=== PATIENT | female | born 1995 | race Two or more races ===

== ENCOUNTER → 2019-12-18 | Emergency (ER) | payer MEDICAID ==
[~2019-12-18] VITALS: Ht 175.3 cm; Wt 81.4 kg
[~2019-12-18] MED LIST: KETOROLAC TROMETH 60MG/2ML VIAL IM ONE
[2019-12-18 10:26] VITALS: BP 147/90
== END | disposition home or self-care (01) ==
LOC: ER 10:20
DX: G44.209 Tension-type headache, unspecified, not intractable (principal)
CPT/HCPCS: 70450; 96372; 99284; J1885

== ENCOUNTER 2020-04-09 10:32 | Emergency (ER) | payer SELFPAY ==
[~2020-04-09] VITALS: Ht 177.8 cm; Wt 80.7 kg
[2020-04-09 10:48] VITALS: BP 150/82
[2020-04-09 11:39] LABS: Urine Bacteria FEW /hpf (None Seen); Urine Blood TRACE /uL (Negative); Urine Mucus FEW (None Seen); Urine Specific Gravity 1.023 (1.001-1.035); Urine WBC 153 /hpf (0 - 5)
[2020-04-09] MEDS ORDERED: PHENAZOPYRIDINE HCL 100 MG TAB PO ONE (12:00)
[2020-04-09] MEDS ORDERED: cefTRIAXone SOD 1,000 MG VL IM ONE (12:00)
== END 2020-04-09 12:16 | disposition home or self-care (01) ==
LOC: ER 10:32
DX: N39.0 Urinary tract infection, site not specified (principal)
CPT/HCPCS: 81001; 96372; 99283; J0696

== ENCOUNTER 2020-09-19 10:44 | Emergency (ER) | payer MEDICAID ==
[~2020-09-19] VITALS: Ht 172.7 cm; Wt 59.0 kg
[2020-09-19 10:47] VITALS: BP 121/70
[2020-09-19 12:05] LABS: Urine Bacteria FEW /hpf (None Seen); Urine Blood TRACE /uL (Negative); Urine Mucus FEW (None Seen); Urine Specific Gravity 1.033 (1.001-1.035); Urine WBC 164 /hpf (0 - 5)
== END 2020-09-19 12:23 | disposition home or self-care (01) ==
LOC: ER 10:44
DX: O23.41 Unspecified infection of urinary tract in pregnancy, first trimester (principal); Z3A.01 Less than 8 weeks gestation of pregnancy
CPT/HCPCS: 81001; 81025

== ENCOUNTER 2020-10-09 18:32 | Inpatient (IN) | payer MEDICAID ==
[~2020-10-09] VITALS: Ht 167.6 cm; Wt 78.5 kg
[2020-10-09 19:03] LABS: Basophils # (auto) 0 10 ^3/uL (0-0.2); Basophils % (auto) 0.4 % (0.0-2.0); Eosinophils # (auto) 0.1 10 ^3/uL (0-0.8); Hematocrit 38.8 % (36.0-46.0); Hemoglobin 13.1 g/dL (12.2-16.2); Lymphocytes # (auto) 3.1 10 ^3/uL (0.4-5.4); Lymphocytes % (auto) 31.1 % (10.0-50.0); Mean Corpuscular Hemoglobin 27.7 pg (28.0-32.0); Mean Corpuscular Hgb Conc. 33.8 g/dL (32.0-36.0); Monocytes % (auto) 9.7 % (0.0-12.0); Neutrophils # (auto) 5.9 10 ^3/uL (1.6-8.6); Neutrophils % (auto) 57.8 % (37.0-80.0); Nucleated Red Blood Cells % 0.2 %; Platelet Count (auto) 450 10^3/uL (140-450); Red Blood Cells 4.73 10^6/uL (4.0-5.20); Red Cell Distribution Width 13.8 % (11.8-14.3); White Blood Cell 10.1 10^3/uL (4.4-10.8)
[2020-10-09 19:14] LABS: Albumin 4.1 g/dL (3.4-5.0); BUN/Creatinine Ratio 13.2; Calcium 8.9 mg/dL (8.5-10.1); Potassium 3.6 mmol/L (3.5-5.1)
[2020-10-09 19:17] LABS: Bilirubin, Total 0.4 mg/dL (0.2-1.0); Total Protein 7.9 g/dL (6.4-8.2)
[2020-10-09 19:47] LABS: Urine Bacteria MANY /hpf (None Seen); Urine Blood Negative /uL (Negative); Urine Hyaline Cast FEW /lpf (0 - 2); Urine Mucus FEW (None Seen); Urine Specific Gravity 1.031 (1.001-1.035); Urine WBC 176 /hpf (0 - 5)
[2020-10-10] MEDS ORDERED: cefTRIAXone SOD 1,000 MG VL IM ONE (00:30)
[2020-10-10] MEDS ORDERED: ACETAMINOPHEN 325 MG TAB PO ONE ×2 (00:30→00:45)
[2020-10-10] MEDS ORDERED: SODIUM CHLORIDE 0.9% 1,000 ML IV ONE (00:45)
[2020-10-10] MEDS ORDERED: cefTRIAXone 1GM/50ML D5W 50 ML IV ONE ×2 (00:45→02:04)
[2020-10-10] MEDS ORDERED: ACETAMINOPHEN 325 MG TAB PO PRN (02:00)
[2020-10-10 02:16] LABS: Alcohol, Urine < 3.0 mg/dL (0-10); Amphetamine Screen, Urine NEGATIVE (NEGATIVE); Barbiturate Scree,Urine NEGATIVE (NEGATIVE); Benzodiazephine Screen, Urine NEGATIVE (NEGATIVE); Cannabinoid Screen, Urine NEGATIVE (NEGATIVE); Cocaine Screen, Urine NEGATIVE (NEGATIVE); Opiate Scree,Urine NEGATIVE (NEGATIVE); Phencyclidine Screen, Urine NEGATIVE (NEGATIVE)
[2020-10-10] MEDS: SODIUM CHLORIDE 0.9% 1,000 ML IV SCH ×3 (03:00→23:55)
[2020-10-10] MEDS ORDERED: cefTRIAXone 1GM/50ML D5W 50 ML IV SCH (09:00)
[2020-10-10] MEDS ORDERED: PRENATAL VITAMIN TAB PO SCH (10:00)
[2020-10-10 12:59] VITALS: BP 102/69
[2020-10-10 16:39] VITALS: BP 103/53
[2020-10-10 22:31] VITALS: BP 133/57
[2020-10-11 05:11] VITALS: BP 93/46
[2020-10-11 05:48] LABS: Basophils # (auto) 0 10 ^3/uL (0-0.2); Basophils % (auto) 0.4 % (0.0-2.0); Eosinophils # (auto) 0.2 10 ^3/uL (0-0.8); Eosinophils % (auto) 2.2 % (0.0-7.0); Hematocrit 36.1 % (36.0-46.0); Hemoglobin 12.2 g/dL (12.2-16.2); Lymphocytes # (auto) 2.8 10 ^3/uL (0.4-5.4); Lymphocytes % (auto) 38.4 % (10.0-50.0); Mean Corpuscular Hemoglobin 27.9 pg (28.0-32.0); Mean Corpuscular Hgb Conc. 33.7 g/dL (32.0-36.0); Mean Corpuscular Volume 82.7 fL (80.0-100.0); Monocytes # (auto) 0.8 10 ^3/uL (0-1.3); Monocytes % (auto) 10.9 % (0.0-12.0); Neutrophils # (auto) 3.5 10 ^3/uL (1.6-8.6); Neutrophils % (auto) 48.1 % (37.0-80.0); Nucleated Red Blood Cells % 0.1 %; Platelet Count (auto) 379 10^3/uL (140-450); Red Blood Cells 4.36 10^6/uL (4.0-5.20); Red Cell Distribution Width 13.6 % (11.8-14.3); White Blood Cell 7.2 10^3/uL (4.4-10.8)
[2020-10-11 06:18] LABS: Calcium 8.5 mg/dL (8.5-10.1); Potassium 3.4 mmol/L (3.5-5.1)
[2020-10-11 06:22] LABS: BUN/Creatinine Ratio 10.8
[2020-10-11] MEDS ORDERED: cefTRIAXone 1GM/50ML D5W 50 ML IV SCH (07:00)
[2020-10-11] MEDS: SODIUM CHLORIDE 0.9% 1,000 ML IV SCH (08:00)
[2020-10-11 09:00] VITALS: BP 98/51
[2020-10-11] MEDS ORDERED: POTASSIUM CHL 10 Meq TABLET PO ONE (09:15)
== END 2020-10-11 09:30 | disposition home or self-care (01) | DRG 566 ==
LOC: ER 18:33 → OVERFLOW 10-10 01:59 → WEST WING 10-10 08:51
PROVIDERS: ADMIT Nurse Practitioner Acute Care; ATTEND Nurse Practitioner Acute Care
DX: O23.11 Infections of bladder in pregnancy, first trimester (principal); O34.219 Maternal care for unspecified type scar from previous cesarean delivery; B96.20 Unspecified Escherichia coli [E. coli] as the cause of diseases classified elsewhere; E87.6 Hypokalemia; O09.31 Supervision of pregnancy with insufficient antenatal care, first trimester; Z3A.08 8 weeks gestation of pregnancy; O99.281 Endocrine, nutritional and metabolic diseases complicating pregnancy, first trimester; Z83.3 Family history of diabetes mellitus; Z87.440 Personal history of urinary (tract) infections; Z20.822 Contact with and (suspected) exposure to COVID-19
CPT/HCPCS: 36415; 76801; 80048; 80053; 80307; 81001; 84443; 84702; 85025; 87086; 87088; 87186; 87426; 96365; G0378; J0696

== ENCOUNTER 2021-04-05 14:00 | Observation (INO) | payer MEDICAID ==
[2021-04-05] MEDS ORDERED: PREN-96 PO (14:49)
== END 2021-04-05 15:18 | disposition home or self-care (01) ==
LOC: LDRP 14:00
PROVIDERS: ADMIT Obstetrics & Gynecology; ATTEND Obstetrics & Gynecology
DX: O69.81X0 Labor and delivery complicated by cord around neck, without compression, not applicable or unspecified (principal); Z3A.34 34 weeks gestation of pregnancy
CPT/HCPCS: 59025; 81002; 94760; G0378; G0379

== ENCOUNTER 2021-04-07 08:21 | Observation (INO) | payer MEDICAID ==
[~2021-04-07] VITALS: Ht 172 cm; Wt 72.6 kg
[~2021-04-07 08:21] MED LIST changes: -KETOROLAC TROMETH 60MG/2ML VIAL IM ONE; +PREN-96 PO
== END 2021-04-07 16:28 | disposition home or self-care (01) ==
LOC: LDRP 14:55
PROVIDERS: ADMIT Obstetrics & Gynecology; ATTEND Obstetrics & Gynecology
DX: O69.81X0 Labor and delivery complicated by cord around neck, without compression, not applicable or unspecified (principal); Z3A.34 34 weeks gestation of pregnancy; Z98.891 History of uterine scar from previous surgery
CPT/HCPCS: 59025; 81002; 94760; G0378; G0379

== ENCOUNTER 2021-04-11 07:46 | Observation (INO) | payer MEDICAID | END 2021-04-11 11:08 | disposition home or self-care (01) | LOC: LDRP 09:00 | PROVIDERS: ADMIT Obstetrics & Gynecology Obstetrics; ATTEND Obstetrics & Gynecology Obstetrics | DX: O69.81X0 Labor and delivery complicated by cord around neck, without compression, not applicable or unspecified (principal); Z3A.35 35 weeks gestation of pregnancy | CPT/HCPCS: 59025; 76818; 81002; 94760; G0378; G0379 ==

== ENCOUNTER 2021-04-14 09:31 | Observation (INO) | payer MEDICAID | END 2021-04-14 11:34 | disposition home or self-care (01) | LOC: LDRP 09:50 | PROVIDERS: ADMIT Obstetrics & Gynecology; ATTEND Obstetrics & Gynecology | DX: O69.81X0 Labor and delivery complicated by cord around neck, without compression, not applicable or unspecified (principal); Z3A.35 35 weeks gestation of pregnancy | CPT/HCPCS: 59025; 76818; 81002; 94760; G0378 ==

== ENCOUNTER 2021-04-18 07:12 | Observation (INO) | payer MEDICAID | END 2021-04-18 10:25 | disposition home or self-care (01) | LOC: LDRP 08:19 | PROVIDERS: ADMIT Obstetrics & Gynecology Obstetrics; ATTEND Obstetrics & Gynecology Obstetrics | DX: O69.81X0 Labor and delivery complicated by cord around neck, without compression, not applicable or unspecified (principal); O62.9 Abnormality of forces of labor, unspecified; Z3A.36 36 weeks gestation of pregnancy; Z98.891 History of uterine scar from previous surgery | CPT/HCPCS: 59025; 76818; 81002; G0378; G0379 ==

== ENCOUNTER 2021-04-21 09:09 | Observation (INO) | payer MEDICAID | END 2021-04-21 14:17 | disposition home or self-care (01) | LOC: LDRP 09:30 | PROVIDERS: ADMIT Obstetrics & Gynecology; ATTEND Obstetrics & Gynecology | DX: O69.81X0 Labor and delivery complicated by cord around neck, without compression, not applicable or unspecified (principal); Z3A.37 37 weeks gestation of pregnancy | CPT/HCPCS: 59025; 76818; 81002; G0378 ==

== ENCOUNTER 2021-04-22 17:48 | Observation (INO) | payer MEDICAID ==
[2021-04-22 19:44] LABS: Urine Bacteria FEW /hpf (None Seen); Urine Blood Negative /uL (Negative); Urine Specific Gravity 1.027 (1.001-1.035); Urine Sperm PRESENT /hpf (None Seen); Urine WBC 2 /hpf (0 - 5)
== END 2021-04-22 21:39 | disposition home or self-care (01) ==
LOC: LDRP 17:48
PROVIDERS: ADMIT Obstetrics & Gynecology; ATTEND Obstetrics & Gynecology
DX: O26.893 Other specified pregnancy related conditions, third trimester (principal); R10.32 Left lower quadrant pain; R10.2 Pelvic and perineal pain; O69.81X0 Labor and delivery complicated by cord around neck, without compression, not applicable or unspecified; Z3A.36 36 weeks gestation of pregnancy; Z79.899 Other long term (current) drug therapy; W10.9XXA Fall (on) (from) unspecified stairs and steps, initial encounter; Y93.89 Activity, other specified; Y92.89 Other specified places as the place of occurrence of the external cause; Y99.8 Other external cause status
CPT/HCPCS: 59025; 76818; 81001; 81002; 94760; G0378; G0379

== ENCOUNTER 2021-04-25 08:50 | Observation (INO) | payer MEDICAID ==
[~2021-04-25] VITALS: Ht 172 cm; Wt 88.5 kg
== END 2021-04-25 10:30 | disposition home or self-care (01) ==
LOC: LDRP 08:50
PROVIDERS: ADMIT Obstetrics & Gynecology Obstetrics; ATTEND Obstetrics & Gynecology Obstetrics
DX: O69.81X0 Labor and delivery complicated by cord around neck, without compression, not applicable or unspecified (principal); O62.9 Abnormality of forces of labor, unspecified; Z3A.37 37 weeks gestation of pregnancy
CPT/HCPCS: 59025; 76818; 81002; 94760; G0378; G0379

== ENCOUNTER 2021-04-30 10:55 | Observation (INO) | payer MEDICAID | END 2021-04-30 12:45 | disposition home or self-care (01) | LOC: LDRP 10:55 | PROVIDERS: ADMIT Obstetrics & Gynecology Obstetrics; ATTEND Obstetrics & Gynecology Obstetrics | DX: O69.81X0 Labor and delivery complicated by cord around neck, without compression, not applicable or unspecified (principal); Z3A.37 37 weeks gestation of pregnancy | CPT/HCPCS: 59025; 76818; 81002; 94760; G0378; G0379 ==

== ENCOUNTER 2021-05-02 08:17 | Observation (INO) | payer MEDICAID | END 2021-05-02 17:01 | disposition home or self-care (01) | LOC: LDRP 14:45 | PROVIDERS: ADMIT Obstetrics & Gynecology Obstetrics; ATTEND Obstetrics & Gynecology Obstetrics | DX: O69.81X0 Labor and delivery complicated by cord around neck, without compression, not applicable or unspecified (principal); Z3A.38 38 weeks gestation of pregnancy | CPT/HCPCS: 59025; 76818; 81002; G0378 ==

== ENCOUNTER 2021-05-05 11:12 | Observation (INO) | payer MEDICAID ==
[2021-05-07] MEDS ORDERED: DOCU-94 PO (14:25)
[2021-05-07] MEDS ORDERED: IBUP800T27 PO (14:25)
[2021-05-07] MEDS ORDERED: HYDR-4902 PO (14:25)
== END 2021-05-06 12:50 | disposition home or self-care (01) ==
LOC: LDRP 05-06 11:11
PROVIDERS: ADMIT Obstetrics & Gynecology; ATTEND Obstetrics & Gynecology
DX: O69.81X0 Labor and delivery complicated by cord around neck, without compression, not applicable or unspecified (principal); Z20.822 Contact with and (suspected) exposure to COVID-19; Z3A.38 38 weeks gestation of pregnancy; Z98.891 History of uterine scar from previous surgery
CPT/HCPCS: 59025; 76818; 81002; 94760; G0378; G0379; U0003

== ENCOUNTER 2021-05-07 10:40 | Inpatient (IN) | payer MEDICAID ==
[~2021-05-07] VITALS: Ht 170.2 cm; Wt 74.0 kg
[2021-05-07] VITALS (12 sets, daily range): BP systolic 109–130; BP diastolic 50–79
[2021-05-07] MEDS ORDERED: ceFAZolin 1GM/50ML 50 ML IV ONE (12:00)
[2021-05-07 12:25] LABS: Basophils # (auto) 0.1 10 ^3/uL (0-0.2); Basophils % (auto) 0.5 % (0.0-2.0); Eosinophils # (auto) 0.1 10 ^3/uL (0-0.8); Eosinophils % (auto) 0.5 % (0.0-7.0); Hematocrit 32.1 % (36.0-46.0); Hemoglobin 10.2 g/dL (12.2-16.2); Lymphocytes # (auto) 1.9 10 ^3/uL (0.4-5.4); Lymphocytes % (auto) 14.7 % (10.0-50.0); Mean Corpuscular Hemoglobin 23.5 pg (28.0-32.0); Mean Corpuscular Hgb Conc. 31.9 g/dL (32.0-36.0); Mean Corpuscular Volume 73.6 fL (80.0-100.0); Monocytes # (auto) 1.2 10 ^3/uL (0-1.3); Monocytes % (auto) 9.8 % (0.0-12.0); Neutrophils # (auto) 9.5 10 ^3/uL (1.6-8.6); Neutrophils % (auto) 74.5 % (37.0-80.0); Nucleated Red Blood Cells % 0.1 %; Red Blood Cells 4.36 10^6/uL (4.0-5.20); Red Cell Distribution Width 15.8 % (11.8-14.3); White Blood Cell 12.7 10^3/uL (4.4-10.8)
[2021-05-07] MEDS ORDERED: MORPHINE SULF PF 2 MG/2 ML SYRG ONE (12:36)
[2021-05-07 12:39] LABS: Urine WBC None Seen /hpf (0 - 5)
[2021-05-07 12:39] LABS: INR 0.94 (0.9-1.15); Partial Thromboplastin Time 26.6 sec (23.6-33.0)
[2021-05-07 12:41] LABS: Albumin 2.5 g/dL (3.4-5.0); Calcium 8.3 mg/dL (8.5-10.1); Potassium 4.1 mmol/L (3.5-5.1)
[2021-05-07 12:44] LABS: BUN/Creatinine Ratio 12.5; Bilirubin, Total 0.4 mg/dL (0.2-1.0); Total Protein 6.7 g/dL (6.4-8.2)
[2021-05-07 12:51] LABS: Urine Bacteria NONE SEEN /hpf (None Seen); Urine Blood Negative /uL (Negative); Urine Specific Gravity 1.013 (1.001-1.035)
[2021-05-07] MEDS ORDERED: NALOXONE HCL 0.4 MG/ML VIAL IV PRN ×2 (13:00→13:15)
[2021-05-07] MEDS ORDERED: ePHEDrine SULFATE 50 MG/ML AMP IV PRN (13:00)
[2021-05-07] MEDS ORDERED: SODIUM CITR/CITRIC ACID ORAL SOLN 30 ML PO SCH (13:00)
[2021-05-07] MEDS ORDERED: HYDROmorphone HCL 2 MG/ML VL IV PRN ×2 (13:00→13:15)
[2021-05-07] MEDS ORDERED: ONDANSETRON HCL 4 MG/2 ML VIAL IV PRN ×2 (13:00→14:15)
[2021-05-07] MEDS ORDERED: LABETALOL HCL 5 MG/ML 4ML SYRINGE IV PRN (13:00)
[2021-05-07 13:04] LABS: Alcohol, Urine < 3.0 mg/dL (0-10); Amphetamine Screen, Urine NEGATIVE (NEGATIVE); Barbiturate Scree,Urine NEGATIVE (NEGATIVE); Benzodiazephine Screen, Urine NEGATIVE (NEGATIVE); Cannabinoid Screen, Urine NEGATIVE (NEGATIVE); Cocaine Screen, Urine NEGATIVE (NEGATIVE); Opiate Scree,Urine NEGATIVE (NEGATIVE); Phencyclidine Screen, Urine NEGATIVE (NEGATIVE)
[2021-05-07] MEDS ORDERED: diphenhdrAMINE HCL 50 MG/1 ML VL IV PRN (13:15)
[2021-05-07] MEDS ORDERED: ePHEDrine SULFATE 50 MG/ML AMP ONE (13:48)
[2021-05-07] MEDS ORDERED: ONDANSETRON HCL 4 MG/2 ML VIAL ONE ×2 (13:50→14:41)
[2021-05-07] MEDS ORDERED: DexAMETHasone SOD PHOS 10MG/1ML VIAL INJ ONE (13:50)
[2021-05-07] MEDS ORDERED: oxyTOCIN 10 UNIT/ML 10ML VIAL ONE (14:04)
[2021-05-07] MEDS ORDERED: ceFAZolin 1GM VL ONE (14:05)
[2021-05-07] MEDS ORDERED: MORPHINE SULFATE INJECTION 2 MG/ML SYRG IV PRN (14:15)
[2021-05-07] MEDS ORDERED: LACT. RINGERS/OXYTOCIN 20UNITS 1,000 ML IV ONE (14:15)
[2021-05-07] MEDS ORDERED: DOCU-94 PO (14:25)
[2021-05-07] MEDS ORDERED: HYDR-4902 PO (14:25)
[2021-05-07] MEDS ORDERED: IBUP800T27 PO (14:25)
[2021-05-07] MEDS: LACTATED RINGER'S 1,000 ML IV SCH ×2 (15:18→15:33)
[2021-05-07] MEDS ORDERED: ALUM & MAG HYDROX-SIMETH LIQ(MAALOX) 30 ML PO PRN (17:30)
[2021-05-07] MEDS ORDERED: ACETAMINOPHEN IV 1000 MG/100ML (10MG/ML) IV PRN (17:45)
[2021-05-07] MEDS: ceFAZolin 1GM/50ML 50 ML IV SCH (22:24)
[2021-05-07 23:18] LABS: Eosinophils # (auto) 0 10 ^3/uL (0-0.8); Hematocrit 32.2 % (36.0-46.0); Lymphocytes # (auto) 1.3 10 ^3/uL (0.4-5.4); Mean Corpuscular Hgb Conc. 31.1 g/dL (32.0-36.0); Red Blood Cells 4.36 10^6/uL (4.0-5.20)
[2021-05-07 23:20] LABS: Basophils # (auto) 0.1 10 ^3/uL (0-0.2); Basophils % (auto) 0.3 % (0.0-2.0); Lymphocytes % (auto) 5.6 % (10.0-50.0); Mean Corpuscular Volume 73.9 fL (80.0-100.0); Monocytes # (auto) 0.6 10 ^3/uL (0-1.3); Monocytes % (auto) 2.6 % (0.0-12.0); Neutrophils # (auto) 21.8 10 ^3/uL (1.6-8.6); Neutrophils % (auto) 91.5 % (37.0-80.0); Red Cell Distribution Width 16.1 % (11.8-14.3); White Blood Cell 23.8 10^3/uL (4.4-10.8)
[2021-05-08] VITALS (15 sets, daily range): BP systolic 103–135; BP diastolic 46–103
[2021-05-08] MEDS: LACTATED RINGER'S 1,000 ML IV SCH (00:57)
[2021-05-08] MEDS: ceFAZolin 1GM/50ML 50 ML IV SCH ×2 (05:32→15:03)
[2021-05-08 08:06] LABS: RPR Non Reactive (Non Reactive)
[2021-05-08 08:07] LABS: Basophils # (auto) 0 10 ^3/uL (0-0.2); Basophils % (auto) 0.1 % (0.0-2.0); Eosinophils # (auto) 0 10 ^3/uL (0-0.8); Mean Corpuscular Volume 73.2 fL (80.0-100.0)
[2021-05-08 08:09] LABS: Hematocrit 26.5 % (36.0-46.0); Hemoglobin 8.5 g/dL (12.2-16.2); Lymphocytes # (auto) 1.9 10 ^3/uL (0.4-5.4); Lymphocytes % (auto) 8.6 % (10.0-50.0); Mean Corpuscular Hemoglobin 23.5 pg (28.0-32.0); Mean Corpuscular Hgb Conc. 32.1 g/dL (32.0-36.0); Monocytes # (auto) 1.9 10 ^3/uL (0-1.3); Monocytes % (auto) 8.6 % (0.0-12.0); Neutrophils # (auto) 18.1 10 ^3/uL (1.6-8.6); Neutrophils % (auto) 82.7 % (37.0-80.0); Nucleated Red Blood Cells % 0.1 %; Red Blood Cells 3.62 10^6/uL (4.0-5.20); Red Cell Distribution Width 15.8 % (11.8-14.3); White Blood Cell 21.9 10^3/uL (4.4-10.8)
[2021-05-08] MEDS ORDERED: PANTOPRAZOLE 40 MG TAB PO SCH (10:00)
[2021-05-08] MEDS ORDERED: HYDROcodone-ACET 5/325MG TAB PO PRN (15:00)
[2021-05-08] MEDS ORDERED: LACTATED RINGER'S 1,000 ML IV SCH (15:00)
[2021-05-08] MEDS ORDERED: BISACODYL 10 MG RECT SUPP PR PRN (15:00)
[2021-05-08] MEDS: SIMETHICONE 80 MG CHEWABLE TABLET PO SCH ×2 (17:24→22:00)
[2021-05-08] MEDS: HYDROcodone-ACET 5/325MG TAB PO PRN (17:25)
[2021-05-08] MEDS: DOCUSATE SOD 100 MG CAP PO SCH (22:00)
[2021-05-09] MEDS: HYDROcodone-ACET 5/325MG TAB PO PRN ×4 (00:13→19:15)
[2021-05-09 03:00] VITALS: BP 119/75
[2021-05-09] MEDS: SIMETHICONE 80 MG CHEWABLE TABLET PO SCH ×4 (05:31→22:10)
[2021-05-09 07:00] VITALS: BP 116/71
[2021-05-09 11:00] VITALS: BP 127/79
[2021-05-09] MEDS: DOCUSATE CALCIUM 240 MG CAP PO SCH (11:55)
[2021-05-09] MEDS: DOCUSATE SOD 100 MG CAP PO SCH ×2 (11:55→22:10)
[2021-05-09] MEDS: IBUPROFEN 800 MG TAB PO PRN (12:30)
[2021-05-09 15:00] VITALS: BP 122/78
[2021-05-09 19:15] VITALS: BP 95/53
[2021-05-09 23:10] VITALS: BP 100/58
[2021-05-10] MEDS: HYDROcodone-ACET 5/325MG TAB PO PRN (02:33)
[2021-05-10 02:40] VITALS: BP 121/78
[2021-05-10] MEDS: SIMETHICONE 80 MG CHEWABLE TABLET PO SCH (06:06)
[2021-05-10 06:50] VITALS: BP 106/65
[2021-05-10] MEDS: IBUPROFEN 800 MG TAB PO PRN (09:16)
[2021-05-10] MEDS: DOCUSATE CALCIUM 240 MG CAP PO SCH (09:18)
[2021-05-10] MEDS: DOCUSATE SOD 100 MG CAP PO SCH (09:18)
== END 2021-05-10 11:35 | disposition home or self-care (01) | DRG 539 ==
LOC: LDRP 10:40 → OBSVTOIN 11:50 → LDRP 23:00
PROVIDERS: ADMIT Obstetrics & Gynecology; ATTEND Obstetrics & Gynecology
PROC: 0UL70CZ Occlusion of Bilateral Fallopian Tubes with Extraluminal Device, Open Approach (ICD-10-PCS; 2021-05-07)
PROC: 10D00Z1 Extraction of Products of Conception, Low, Open Approach (ICD-10-PCS; principal; 2021-05-07 13:27)
DX: O34.211 Maternal care for low transverse scar from previous cesarean delivery (principal); R71.0 Precipitous drop in hematocrit; Z30.2 Encounter for sterilization; Z37.0 Single live birth; Z3A.38 38 weeks gestation of pregnancy
CPT/HCPCS: 36415; 59025; 80053; 80307; 81001; 81002; 84112; 85025; 85610; 85730; 86592; 86850; 86900; 86901; 94760; 94762; 96360; 96361; G0378; J0131; J0690; J1100; J2405; J2590